=== PATIENT | male | born 1995 | race African-American/Black ===

== ENCOUNTER 2018-06-06 05:41 | Emergency (ER) | payer OTHER ==
[~2018-06-06] VITALS: Ht 200.7 cm; Wt 95.3 kg
[2018-06-06] MEDS ORDERED: ALBU18HF2 IH (05:52)
[2018-06-06 06:07] LABS: BILIRUBIN,URINE NEGATIVE (NEGATIVE); CLARITY,URINE CLEAR; COLOR,URINE YELLOW; GLUCOSE, URINE (UA) NEGATIVE (NEGATIVE); KETONES,URINE NEGATIVE (NEGATIVE); LEUKOCYTE ESTERASE ,URINE 1+ (NEGATIVE); NITRITE,URINE NEGATIVE (NEGATIVE); PH,URINE 6 (5-9); PROTEIN,URINE NEGATIVE (NEGATIVE); UROBILINOGEN,URINE NORMAL (NORMAL)
[2018-06-06 06:16] LABS: BACTERIA,URINE TRACE /HPF; SQUAMOUS EPITHELIAL CELL,UR RARE /HPF
--- NOTE | 2018-06-06 06:16 | ED GU-Male ---
General Chief Complaint: -Male Stated Complaint: DIFFICULTY URINATING Nursing Triage Note: CLOUDY PENILE DISCHARGE, BURNING WITH URINATION. Source: patient Exam Limitations: no limitations History of Present Illness Date Seen by Provider: Jun 06, 2018 Time Seen by Provider: 05:55 Initial Comments Patient has 2 days of painless urethral discharge after urinating. He said last week his girlfriend told him that she had to take some antibiotics because she had a urinary tract infection. He's never had a sexual transmitted infection before. He has not had any rash welts lesions pain and redness tenderness of the testicles. No fevers chills. Allergies and Home Medications Allergies Coded Allergies: No Known Drug Allergies (Unverified , 06/06/18) Patient Home Medication List Home Medication List Reviewed: Yes Review of Systems Review of Systems Constitutional: No chills, No diaphoresis EENTM: No ear discharge, No hearing loss Respiratory: No cough, No short of breath Cardiovascular: No chest pain, No palpitations Gastrointestinal: No abdominal pain, No constipation Past Zhsmtej-Mfdxhj-Ihlzvp Hx Patient Social History Alcohol Use: Denies Use Recreational Drug Use: No Smoking Status: Never a Smoker 2nd Hand Smoke Exposure: No Recent Foreign Travel: No Contact w/Someone Who Travel: No Recent Infectious Disease Expo: No Recent Hopitalizations: No Immunizations Up To Date Tetanus Booster (TDap): Unknown PED Vaccines UTD: Yes Seasonal Allergies Seasonal Allergies: No Past Medical History Surgeries: No Respiratory: Yes Asthma Cardiac: No Neurological: No Genitourinary: No Gastrointestinal: No Musculoskeletal: No Endocrine: No HEENT: No Cancer: No Psychosocial: No Integumentary: No Blood Disorders: No Physical Exam Vital Signs Vital Signs - First Documented 06/06/18 05:52 Temp 97.4 Pulse 48 Resp 18 B/P (MAP) 128/78 (95) Pulse Ox 100 O2 Delivery Room Air Capillary Refill : Less Than 3 Seconds Height, Weight, BMI Height: 6'7.00" Weight: 210lbs. oz. [id number]; BMI Method:Stated General Appearance: WD/WN, no apparent distress HEENT: PERRL/EOMI, pharynx normal Neck: non-tender, normal inspection Cardiovascular: normal peripheral pulses, regular rate, rhythm Respiratory: chest non-tender, no respiratory distress, no accessory muscle use Gastrointestinal: non tender, soft Progress/Results/Core Measures Suspected Sepsis Recent Fever Within 48 Hours: No Infection Criteria Present: None New/Unexplained Altered Menta: No Sepsis Screen: No Definite Risk SIRS Temperature:97.4 Pulse: 48 Respiratory Rate: 18 Blood Pressure 128 /78 Mean: 95 Results/Orders Lab Results Laboratory Tests Test 06/06/18 05:50 Range/Units Urine Color YELLOW Urine Clarity CLEAR Urine pH 6 5-9 Urine Specific [place] 1.025 H 1.016-1.022 Urine Protein NEGATIVE NEGATIVE Urine Glucose (UA) NEGATIVE NEGATIVE Urine Ketones NEGATIVE NEGATIVE Urine Nitrite NEGATIVE NEGATIVE Urine Bilirubin NEGATIVE NEGATIVE Urine Urobilinogen NORMAL NORMAL MG/DL Urine Leukocyte Esterase 1+ H NEGATIVE Urine RBC (Auto) NEGATIVE NEGATIVE Urine RBC NONE /HPF Urine WBC 5-10 H /HPF Urine Squamous Epithelial Cells RARE /HPF Urine Crystals NONE /LPF Urine Bacteria TRACE /HPF Urine Casts NONE /LPF Urine Mucus SMALL H /LPF Urine Culture Indicated YES My Orders Orders - JULIANNE MATAMOROS Ua Culture If Indicated (06/06/18 05:59) Neis Ebenezer Dna Urine Test (06/06/18 05:59) Chlamydia Trachomatis Urine (06/06/18 05:59) Urine Culture (06/06/18 05:50) Ceftriaxone For Im Use (Rocephin For Im (06/06/18 06:30) Azithromycin Tablet (Zithromax Tablet) (06/06/18 06:30) Vital Signs/I&O 06/06/18 05:52 Temp 97.4 Pulse 48 Resp 18 B/P (MAP) 128/78 (95) Pulse Ox 100 O2 Delivery Room Air Capillary Refill : Less Than 3 Seconds Blood Pressure Mean: 95 Progress Note : Time: 06:18 Progress Note Urinalysis, Rocephin and azithromycin. Patient reports he [facility]. Departure Impression Primary Impression: Urethritis Disposition: 01 HOME, SELF-CARE Condition: Stable Departure-Patient Inst. Decision time for Depature: 06:22 Referrals: [employer] [facility] (PCP/Family) Primary Care Physician Patient Instructions: Sexually-Transmitted Diseases (DC) Add. Discharge Instructions: We will call you if your tests are positive. Follow up with [facility]. All discharge instructions reviewed with patient and/or family. Voiced understanding. Copy Copies To 1: VIVIANE CASTILLO MD,JULIANNE J Jun 06, 2018 06:16
[2018-06-06] MEDS ORDERED: cefTRIAXone 500 MG/1.43 ML vial (IM ONLY) IM ONE (06:30)
[2018-06-06] MEDS ORDERED: cefTRIAXone 250 MG/ML vial (IM ONLY) IM ONE (06:30)
[2018-06-06] MEDS ORDERED: AZITHROMYCIN 250 MG TAB (ZITHROMAX) PO ONE (06:30)
[2018-06-06 06:35] VITALS: BP 128/78
== END 2018-06-06 06:34 | disposition home or self-care (01) ==
LOC: ER 05:43
DX: N34.2 Other urethritis (principal); J45.909 Unspecified asthma, uncomplicated; Z87.440 Personal history of urinary (tract) infections
CPT/HCPCS: 36415; 81000; 87088; 87491; 87591; 96372; 99284